=== PATIENT | female | born 1985 | race Caucasian/White ===

== ENCOUNTER 2017-02-22 20:11 | Emergency (ER) | payer OTHER ==
[2017-02-22 20:24] VITALS: BP 120/83; PULSE 99; RESP 20; TEMP 98; O2SAT 100
--- NOTE | 2017-02-22 20:57 | C.PDOC ---
History Of Present Illness 31 yr old female presents to the ER stating while walking today she heard a crack in the right ankle and states she starting have pain afterwards. Patient reports a questionable injury while coming off an escalator but states the foot has improved. Patient denies back pain, leg pain, weakness or numbness. Time Seen by Provider: 02/22/17 20:22 Chief Complaint (Nursing): Lower Extremity Problem/Injury History Per: Patient History/Exam Limitations: no limitations Onset/Duration Of Symptoms: Sudden Onset (Today ) Past Medical History Reviewed: Historical Data, Nursing Documentation, Vital Signs Vital Signs: Last Vital Signs Temp 98.0 F 02/22/17 20:17 Pulse 99 H 02/22/17 20:17 Resp 20 02/22/17 20:17 BP 120/83 02/22/17 20:17 Pulse Ox 100 02/22/17 21:44 Family History: States: No Known Family Hx - Social History Hx Alcohol Use: No Hx Substance Use: No - Immunization History Hx Tetanus Toxoid Vaccination: No Hx Influenza Vaccination: No Hx Pneumococcal Vaccination: No Review Of Systems Except As Marked, All Systems Reviewed And Found Negative. Musculoskeletal: Positive for: Other ((+) Crack in right ankle ). Negative for : Back Pain, Leg Pain Neurological: Negative for: Weakness, Numbness Physical Exam - Physical Exam Appears: Non-toxic, No Acute Distress Skin: Warm, Dry, No Rash Head: Atraumatic, Normacephalic Oral Mucosa: Moist Extremity: Normal ROM, Tenderness (Minimal tenderness to the right lateral malleolus. ), No Calf Tenderness, Capillary Refill (<2), Swelling (Minimal swelling to right lateral malleolus.) Pulses: Left Dorsalis Pedis: Normal, Right Dorsalis Pedis: Normal Neurological/Psych: Oriented x3, Normal Speech, Normal Motor Gait: Steady ED Course And Treatment O2 Sat by Pulse Oximetry: 100 Medical Decision Making Medical Decision Making: PLAN: * X-Ray - Right Ankle, Right Foot xrays are negative. Aircast was placed to the ankle. Patient is ambulatory with steady gait. Disposition - Disposition Referrals: [facility] [Outside] Disposition: HOME/ ROUTINE Disposition Time: 21:43 Condition: GOOD Additional Instructions: Follow up with the medical doctor within 1-2 days, Return if worsened. Prescriptions: Acetaminophen [Tylenol] 325 mg PO Q6 PRN #30 tab PRN Reason: Pain, Mild (1-3) Instructions: Ankle Sprain (ED) - Clinical Impression Clinical Impression: Ankle sprain - PA / [employer] / Resident Statement MD/DO has reviewed & agrees with the documentation as recorded. - Scribe Statement The provider has reviewed the documentation as recorded by the Scribe Sonal Roman All medical record entries made by the Scribe were at my direction and personally dictated by me. I have reviewed the chart and agree that the record accurately reflects my personal performance of the history, physical exam, medical decision making, and the department course for this patient. I have also personally directed, reviewed, and agree with the discharge instructions and disposition.
[2017-02-22] MEDS ORDERED: Tobramycin 0.3% OPHT SOLN OD STA (21:39)
--- NOTE | 2017-02-23 08:55 | RAD ---
Right foot four views History: Foot pain. Comparison: None available. Findings: Mild hallux valgus deformity. No evidence of acute displaced fracture or dislocation. Minimal plantar calcaneal spurring. Impression: Mild degenerative changes. If pain persists, consider MRI.
--- NOTE | 2017-02-23 08:57 | RAD ---
Right ankle three views History: Pain and swelling. Comparison: None available. Findings: Mild lateral malleolar soft tissue swelling. No evidence of acute displaced fracture or dislocation. Mild plantar calcaneal spurring. Impression: Mild lateral malleolar soft tissue swelling. No evidence of acute displaced fracture or dislocation. Mild plantar calcaneal spurring. If pain persists, consider MRI.
== END 2017-02-22 21:48 | disposition home or self-care (01) ==
LOC: C.ER 20:11
DX: S93.401A Sprain of unspecified ligament of right ankle, initial encounter (principal); X58.XXXA Exposure to other specified factors, initial encounter; Y93.01 Activity, walking, marching and hiking; Y92.9 Unspecified place or not applicable